=== PATIENT | male | born 1985 | race Caucasian/White ===

== ENCOUNTER 2017-07-07 15:07 | Emergency (ER) | payer OTHER ==
[~2017-07-07] VITALS: Ht 185.4 cm; Wt 79.4 kg
--- NOTE | 2017-07-07 15:26 | Emergency Room Report ---
History of Present Illness Time Seen by MD Irwin Presenting Problem in Triage Pt arrived:Walked Presenting Problem:LACERATION TO LEFT UPPER LEG APPROX 10CM. 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 N Clinical Suspician of Infection? N Mental Status: 1 - Regular (Normal Baseline) Sepsis Risk:Low Sepsis Risk Have you (or family members/close friends) recently traveled outside the [place]? N If Yes, where/when: Have you had exposure to infectious disease within the past month? N TB? Other? Specify: 10 cm curvilinear laceration, sustained to L anterior thigh while finishing up some work today and turned, accidentally lacerating integument when L thigh caught on a "screw in the dry wall". No bleeding on arrival; no weakness or numbness. ALLERGIES Coded Allergies: No Known Allergies (07/07/17) Home Medications Reported Medications No Known Home Medications History Medical History General CAD? No Angina: No ND: No Hypertension? No Hyperlipidemia? No CHF? No DVT? No PE? No COPD? No Asthma? No Anemia? No GERD? No Gastric ulcers? No GI Bleed? No Hernia? No Thyroid Problems? No Hypothyroidism? No CVA? No Seizures? No Diabetes? No Renal Insuffiency? No End Stage Renal Disease? No UTI? No Stones? No BPH? No GB Disease: No Nephritic Syndrome? No Asplenia? No Hepatitis? No Sickle Cell Disease? No Arthritis? No Migraines? No Cataracts? No Glaucoma? No MRSA? No HIV? No TB? No Anxiety? No Depression? No Cancer? No More? No Immunization Hx DT/Tetanus 1-4 Years Ago Surgical Hx Previous Surgery?Y PNEUMOTHORAX REPAIR Social History Smoking Hx Smoker: Current Every Day Smoker Tobacco: Yes Type Cigarettes Packs/day < 1 Pack Alcohol Alcohol: No Review of Systems All Other Systems Reviewed and Negative Skin see HPI Physical Exam Vital Signs Vital Signs Date Time Temp Pulse Resp B/P Pulse O2 O2 Flow FiO2 Ox Delivery Rate 07/07 1515 98.7 90 16 148/92 99 General Appearance normal appearance, WD/WN, no apparent distress Eye Exam - bilateral eye normal exam, bilateral eye PERRL, bilateral eye EOMI Respiratory Status Yes: trachea midline. No: respiratory distress. Cardiovascular no peripheral edema, normal peripheral pulses Extremities normal range of motion, normal capillary refill, no pedal edema Strength 5 Upper Ext (L), 5 Upper Ext (R), 5 Lower Ext (L), 5 Lower Ext (R) Neurologic alert, normal exam, no motor/sensory deficits, oriented x 3 Skin laceration(s), curvileaner, L ant thigh, no FB or debris, no bleeding, to subcutaneous layer with no tendon or bone exposure. Medical Decision Making LABS/Meds/Orders Pt receiving controlled substance in ED? No Procedures Laceration/Wound Repair Laceration/Wound Repair Risks/benefits discussed with pt/guardian? Yes Tetanus status up to date Wound Location head (L thigh) Wound Length (cm) 10 Wound's Depth, Shape sucutaneous tissue Wound Explored clean Irrigated w/ Saline (ccs) 30 Wound Prep Hibiclens Anesthesia 1% Lidocaine Volume Anesthetic (ccs) 6 Wound Debrided none Wound Repaired With sutures Suture Size/Type 4:0, Ethilon Layer Closure No Total Number Sutures 17 Sterile Dressing Applied Yes Departure Departure Time of Disposition 1630 Disposition DC Home or Self Care(routine) Clinical Impression Primary Impression: Laceration of left thigh Qualifiers: Encounter type: initial encounter Qualified Code: S71.112A - Laceration without foreign body, left thigh, initial encounter Condition STABLE Patient Instructions Laceration Repair Additional Instructions Suture removal in 7-10 days by prison nurse or practitioner; need wound check in one day; keep area dry and covered at all times. Tylenol or Advil over the counter as needed. Discharge Counseling Counseled pt/family regarding diagnosis, home care, follow up needs Prescriptions Current Visit Scripts No Known Home Medications ED Critical Care Critical Care No at 1631
[2017-07-07 16:38] VITALS: BP 147/88
== END 2017-07-07 16:38 | disposition home or self-care (01) ==
LOC: ER 15:07
PROC: 0HQJXZZ Repair Left Upper Leg Skin, External Approach (ICD-10-PCS; principal; 2017-07-07)
DX: S71.112A Laceration without foreign body, left thigh, initial encounter (principal); Z72.0 Tobacco use; W45.0XXA Nail entering through skin, initial encounter; Y92.9 Unspecified place or not applicable